=== PATIENT | male | born 1995 | race Caucasian/White ===

== ENCOUNTER 2022-03-03 23:38 | Emergency (ER) | payer SELFPAY ==
[2022-03-04 02:38] VITALS: BP 130/65; PULSE 60; RESP 19; TEMP 98
--- NOTE | 2022-03-04 03:49 | ED ---
General Adult HPI - General Chief complaint: Recheck/Abnormal Lab/Rx Stated complaint: covid swab Time Seen by Provider: 03/04/22 03:47 Source: patient Mode of arrival: ambulatory - History of Present Illness Initial comments: 's patient is 26-year-old man who states she was directed here to have testing for COVID-19, [place]. He states he is not having sy mptoms. He declines medical screening exam. - Related Data Allergies Allergy/AdvReac Type Severity Reaction Status Date / Time No Known Allergies Allergy Verified 03/04/22 02:38 Review of Systems ROS Statement: Those systems with pertinent positive or pertinent negative responses have been documented in the HPI. ROS Other: All systems not noted in ROS Statement are negative. Past Medical History Past Medical History: No Reported History History of Any Multi-Drug Resistant Organisms: None Reported Past Surgical History: No Surgical Hx Reported Past Psychological History: No Psychological Hx Reported Smoking Status: Never smoker Past Alcohol Use History: None Reported Past Drug Use History: None Reported Course Vital Signs 03/04/22 02:36 Temperature 98 F Pulse Rate 60 Respiratory 19 Rate Blood Pressure 130/65 O2 Sat by Pulse 97 Oximetry Medical Decision Making - Medical Decision Making Patient declines screening exam. - Lab Data Lab Results 03/04/22 Range/Units 02:39 Coronavirus (PCR) Detected A (Not Detectd) Disposition Clinical Impression: COVID-19 Disposition: HOME SELF-CARE Condition: Undetermined Instructions (If sedation given, give patient instructions): Coronavirus Disease 2019 (COVID-19) Is patient prescribed a controlled substance at d/c from ED?: No Referrals: None,Stated [Primary Care Provider] - 1-2 days
== END 2022-03-04 03:48 | disposition home or self-care (01) ==
LOC: EC 23:38
DX: U07.1 COVID-19 (principal)
CPT/HCPCS: 87635